=== PATIENT | female | born 1985 | race Caucasian/White ===

== ENCOUNTER 2019-08-10 12:29 | Emergency (ER) | payer BC, SELFPAY ==
--- NOTE | 2019-08-10 13:03 | ED.URI ---
HPI - URI/Sore Throat General Stated Complaint: cough congestion Time Seen by Provider: 08/10/19 13:18 Source: patient and RN notes reviewed Mode of arrival: ambulatory Limitations: no limitations History of Present Illness HPI Narrative: 34-year-old female presents with concern for 3-day history of fever, cough, nasal congestion, sinus pressure, sinus drainage, sore throat. Reports is been taking [id number] medications with little relief. MD elicited complaint: cough Related Data Home Medications Medication Instructions Recorded Confirmed No Home Medications 08/10/19 08/10/19 Allergies Allergy/AdvReac Type Severity Reaction Status Date / Time risperidone Allergy Severe DYSTONIC Verified 08/10/19 13:30 Review of Systems Review of Systems: Narrative: CONSTITUTIONAL: Reports malaise, chills, sweats, fever. EYES: Denies visual changes, redness, or discharge. ENT: Reports rhinorrhea, congestion, sinus pain,and sore throat. Denies otalgia CARDIOVASCULAR: Denies chest pain, palpitations, or edema. RESPIRATORY: Reports cough, chest congestion. Denies dyspnea. GASTROINTESTINAL: Denies abdominal pain, nausea, vomiting, diarrhea SKIN: Denies rash or itching. MUSCULOSKELETAL: Denies myalgia. NEUROLOGIC: Denies headache. All systems reviewed & are unremarkable except as noted in HPI and below PMFSH Comments At time of signature, agree with nursing past medical, surgical, social and family history. There is no relevant family history pertinent to the presenting complaint Exam Narrative: Exam Narrative: GENERAL: Well-appearing, well-nourished, and in no acute distress. HEAD: Normocephalic EYES: PERRLA, conjunctivae clear ENT: Nares clear, turbinates edematous and erythematous, clear discharge. Mucous membranes moist. TM pearly edouard with dull light reflex bilaterally; no tragal tenderness. Oropharynx not erythematous without lesions. Tonsils not enlarged and without exudate, no drooling, mild hoarseness, no trismus. NECK: Supple. No lymphadenopathy CHEST: Clear to auscultation, breath sounds equal. No wheezing, rhonchi, rales, or stridor. No respiratory distress, speaks in full sentences. Cough noted HEART: Regular rate and rhythm. No murmur heard. Normal peripheral pulses. SKIN: Warm, dry, no rash. NEURO: Alert and oriented x3. PSYCH: Normal mood and affect Course Course Emergency Course: Patient is aware of diagnosis, understands and agrees to treatment plan. Anticipatory guidance given. Patient agrees to follow-up as directed and is aware of reasons to seek care at the emergency department. Portions of this record may have been created with voice recognition software Vital Signs Vital signs: Reviewed. MDM - URI/Sore Throat MDM Narrative Medical decision making narrative: Differential diagnosis considered: Strep pharyngitis, allergic rhinitis, upper respiratory tract infection, sinusitis, rhinosinusitis, nasopharyngitis. viral pharyngitis, otitis media, otitis externa, pneumonia, bronchitis, viral cough syndrome, viral syndrome, and influenza. Exam findings show no acute concerns or changes; patient is non-toxic appearing and is in no distress. Patient is appropriate for outpatient treatment and follow-up. Lab Data Attestation: I reviewed the patient's lab results. Critical Care Time Critical Care Time Critical Care Time: No Discharge Plan Discharge Clinical Impression: Influenza-like illness Patient Disposition: Home, Self-Care Condition: Stable Instructions: Antibiotic Form, Influenza (ED) Additional Instructions: -Your symptoms are caused by a virus, and antibiotic does not cure viral illness. -Take strict precautions to prevent the spread of your virus. Be diligent about covering your cough (even when you are alone) and washing your hands frequently. -Alternate Tylenol and Motrin for pain and fever relief (per package directions) -Some Cough medicines may make you drowsy, do not take it if you have
[2019-08-10 13:08] VITALS: BP 125/78; PULSE 85; RESP 16; TEMP 37.4; O2SAT 98
== END 2019-08-10 13:35 | disposition home or self-care (01) ==
PROVIDERS: Emergency Provider Nurse Practitioner
DX: R05 Cough (principal); R50.9 Fever, unspecified; R09.81 Nasal congestion; J34.89 Other specified disorders of nose and nasal sinuses; J02.9 Acute pharyngitis, unspecified; L40.50 Arthropathic psoriasis, unspecified
CPT/HCPCS: 87804; 99213; G0463

== ENCOUNTER 2021-05-21 21:09 | Emergency (ER) | payer OTHER, SELFPAY ==
--- NOTE | ~2021-05-21 | CT_ITS ---
EXAMINATION: CTA chest PE protocol EXAM DATE: 05/21/2021 23:35 INDICATION: Chest pain and COVID. TECHNIQUE: Spiral CTA of the chest (pulmonary arteries) was performed with 100 cc Omnipaque 350 intr avenous contrast injection. Images were acquired during the pulmonary arterial phase. Coronal maxi mum intensity projection 3D-reconstructions were created by the technologist on dedicated workstation . Axial, coronal and sagittal reformatted images were reviewed. The dose-length product (DLP) for t his examination was 780.35 mGy-cm. The exposure was tailored according to patient size (auto mA exp osure control), and iterative reconstruction (ASIR) was used as additional dose reduction technique. Correlation is made to chest x-ray earlier same date. FINDINGS: Pulmonary arteries are well opacified and without intraluminal filling defects. No thora cic aortic dissection. Moderate amount of bilateral peripheral groundglass airspace disease, appeara nce and distribution is consistent with COVID pneumonia. There are no pleural or pericardial effusio ns. Tracheobronchial tree is patent. There is no mediastinal, hilar or axillary lymphadenopathy. There is no pneumothorax. Heart normal in size. No evidence of coronary arterial calcification. There is hepatic steatosis. There is thoracic spondylosis without osteoblastic or osteolytic lesio ns identified. IMPRESSION: 1. Moderate amount of bilateral COVID pneumonia. 2. No pulmonary emboli. Reviewed, dictated and finalized at location A. KNITTER
--- NOTE | ~2021-05-21 | XR_ITS ---
EXAMINATION: XR chest 1V portable EXAM DATE: 05/21/2021 22:31 INDICATION: Left-sided chest pain. TECHNIQUE: Portable AP frontal chest x-ray was obtained. Comparison is made to prior examination from 01/10/2019. FINDINGS: Suspect some ill-defined bilateral acute airspace disease, could be developing COVID pneumo vladimir given community prevalence in appearance. Please correlate this results with CT pulmonary scan wh ich has been ordered. Cardiomediastinal silhouette is normal. There is no pneumothorax suspected. The re are no pleural effusions. There are no osseous abnormalities identified. IMPRESSION: Suspect ill-defined bilateral airspace disease. Reviewed, dictated and finalized at location A. NING SPECIALIST
--- NOTE | 2021-05-21 21:11 | ECG_ITS ---
Measurements Intervals [place] Rate: 83 P: 58 OR: 158 QRS: 30 QRSD: 97 T: 6 QT: 370 QTc: 436 Interpretive Statements SINUS RHYTHM POSSIBLE LEFT ATRIAL ENLARGEMENT INCOMPLETE RIGHT BUNDLE BRANCH BLOCK BORDERLINE ST-T WAVE ABNORMALITY- ANTEROLAT/INF LEADS BASELINE WANDER- II, III, AVR, AVF, V2-V3, V6 BORDERLINE ECG Electronically Signed On 05-22-2021 6:49:00 PROFESSOR OF POLITICAL SCIENCE by Lazarus De La Fuente D.O.
[2021-05-21 21:16] VITALS: BP 121/74; PULSE 87; RESP 18; TEMP 36.3; O2SAT 97
[2021-05-21 21:39] LABS: Basophils Percent Auto 0.1 % (0.2-1.2); Hematocrit 41.1 % (37.0-47.0); Immature Granulocyte Absolute 0.02 K/mm3 (0.00-0.031); Immature Granulocyte Percent A 0.3 % (0-0.5); Lymphocytes Absolute Auto 1.47 K/mm3 (0.9-3.2); Mean Corpuscular HGB Conc 34.1 g/dl (32-36); Mean Corpuscular Hemoglobin 30.5 pg (26-34); Mean Corpuscular Volume 89.5 fl (80-100); Mean Platelet Volume 11.5 fl (7.4-10.4); Monocytes Absolute Auto 0.3 K/mm3 (0.1-0.6); Monocytes Percent Auto 3.5 % (2.6-8.5); Neutrophils Absolute Auto 5.6 K/mm3 (1.3-6.7); Neutrophils Percent Auto 76.1 % (45.5-73.1); Platelet Count Result 204 k/mm3 (150-375); Red Blood Count 4.59 M/mm3 (4.2-5.4); Red Cell Distribution Width 12.3 % (11.5-14.5); White Blood Count 7.4 K/mm3 (4.5-10.0)
[2021-05-21 21:43] LABS: Alanine Aminotransferase 34 U/L (4-35); Albumin Level 4.2 g/dL (3.5-5.1); Alkaline Phosphatase 70 U/L (38-126); Anion Gap 10 mmol/L (8-16); Aspartate Amino Transferase 36 U/L (14-36); Bilirubin,Total 0.4 mg/dL (0.2-1.3); Blood Urea Nitrogen 17 mg/dL (7-17); Calcium 9.4 mg/dL (8.4-10.2); Carbon Dioxide 22 mmol/L (22-30); Chloride 103 mmol/L (98-107); Estimated Glomerular Filt Rate > 60; Glucose 199 mg/dL (65-110); Lipase 101 U/L (23-300); Potassium 4.2 mmol/L (3.4-5.0); Sodium 135 mmol/L (137-145)
[2021-05-21 21:54] LABS: Troponin I < 0.012 ng/mL (0.000-0.034)
[2021-05-21] MEDS: ASPIRIN 81 MG CHEWABLE TABLET 324 MG PO (22:14)
--- NOTE | 2021-05-21 22:27 | ED.CHESTPAIN ---
HPI - Chest Pain General Chief Complaint: Chest Pain Stated Complaint: chest pain Time Seen by Provider: 05/21/21 22:04 Source: RN notes reviewed History of Present Illness HPI narrative: Patient presents emergency department from home for chest pain. Patient states chest pain began approximately 2 days ago pain is located in the midsternal chest and radiates through into the back described as sharp and stabbing. Patient states that she was diagnosed with COVID-19 on May 16 with symptoms starting May 14. She states she has had a cough this been nonproductive notes intermittent fever she denies any abdominal pain nausea vomiting diarrhea or any other symptoms states she did not receive the COVID-19 vaccination Related Data Allergies Allergy/AdvReac Type Severity Reaction Status Date / Time risperidone Allergy Severe DYSTONIC Verified 05/21/21 21:19 Review of Systems Review of Systems: Gen.: Denies fevers or chills reports COVID-19 ENT: Denies congestion Respiratory: Denies shortness of breath or cough CV: See HPI GI: Denies abdominal pain nausea, emesis or diarrhea Musculoskeletal: Denies back pain or muscle pain Neuro: Denies numbness, tingling, weakness or focal weakness Skin: Denies rash Except as documented, all other systems reviewed and negative PMFSH Past Medical History Medical History (Updated 05/22/21 @ 01:07 by Jeffery Boss DO) COVID-19 Social History Social History (Updated 05/21/21 @ 22:28 by Jeffery Boss DO) Smoking status: Never smoker Exam Narrative: APPEARANCE: No acute distress, nontoxic, resting in bed EYES: EOMI HEENT: Normocephalic, atraumatic, OMM RESPIRATORY: No respiratory distress Clear to auscultation bilaterally with no rhonchi wheezing or rales. CARDIOVASCULAR: Regular rate and rhythm without murmurs rubs or gallops. ABDOMINAL: Soft, nontender, nondistended, no rebound or guarding MUSCULOSKELETAl: Moves all extremities. No clubbing, cyanosis or edema. NEURO: Awake and alert. Following commands, speech normal, no focal deficits SKIN:: Warm, dry. No rashes lesions or abrasions PSYCHIATRIC: Normal affect/mood, Course Course Emergency Course: Currently on steroids as well as albuterol from her PCP Discussed with patient results of workup and diagnosis. Discussed need for follow-up with primary care, proper use of medication, and reasons to return to the emergency department. Patient understands and agrees to current treatment plan Vital Signs Vital signs: Vital Signs Temperature 97.3 F L 05/21/21 21:16 Pulse Rate 87 05/21/21 21:16 Respiratory Rate 18 05/21/21 21:16 Blood Pressure 121/74 05/21/21 21:16 Pulse Oximetry 97 05/21/21 21:16 Temperature 97.3 F L 05/21/21 21:16 Pulse Rate 72 05/21/21 22:29 Respiratory Rate 16 05/21/21 22:29 Blood Pressure 132/90 05/21/21 22:29 Pulse Oximetry 98 05/21/21 22:29 MDM - Chest Pain MDM Narrative Medical decision making narrative: Patient's EKGs and labs are without significant high risk changes. Cardiac risk factors reviewed. Patient is felt likely low risk for ACS and reasonable for further risk stratification testing as an outpatient. Pain has been ongoing for the past 3 days with 2 days of anxiety. Patient currently with COVID-19 Covid pneumonia seen throughout the lungs suspect a component of pleurisy with this pain no signs of pulmonary embolism or aneurysm on CTA chest. Patient's oxygen levels have remained stable on room air throughout stay in ED in the upper 90s.. Patient is felt to be a reasonable candidate for continued evaluation as an outpatient Lab Data Result diagrams: 05/21/21 21:23 05/21/21 21:23 Labs: Lab Results 05/21/21 05/21/21 05/21/21 Range/Units 21:23 21:23 22:20 WBC 7.4 (4.5-10.0) K/mm3 RBC 4.59 (4.2-5.4) M/mm3 Hgb 14.0 (12.0-15.0) g/dL Hct 41.1 (37.0-47.0) % MCV 89.5 (80-100) fl MCH 30.5 (26-34) pg
[2021-05-21 22:29] VITALS: BP 132/90; PULSE 72; RESP 16; O2SAT 98
[2021-05-21 22:34] LABS: INR 0.8; Partial Thromboplastin Time 26.2 SECONDS (22.3-36.8); Prothrombin Time 11.5 Seconds (11.1-14.7)
[2021-05-22] MEDS: ALBUTEROL SULFATE (*SP) AEROSOL 1 PUFF 2 PUFF INHALATION (00:32)
[2021-05-22 01:01] LABS: Troponin I < 0.012 ng/mL (0.000-0.034)
[2021-05-22 01:52] VITALS: PULSE 80; RESP 16; O2SAT 100
== END 2021-05-22 01:53 | disposition home or self-care (01) ==
PROVIDERS: Emergency Medicine; Emergency Provider Emergency Medicine; PCP Emergency Medicine
DX: U07.1 COVID-19 (principal); R09.1 Pleurisy
CPT/HCPCS: 36415; 71045; 71275; 80053; 81025; 83690; 84484; 85025; 85610; 85730; 93005; 94640; 96365; 99284; A9270; J0131; Q9967

== ENCOUNTER → 2021-06-20 12:36 | Outpatient (CLI) | payer SELFPAY ==
--- NOTE | ~2021-06-20 | XR_ITS ---
EXAMINATION: XR chest 2V DATE: 06/20/2021 13:02 INDICATION: Pneumonia TECHNIQUE: PA and lateral views of the chest were obtained. COMPARISON: Chest radiograph dated 05/21/2021 FINDINGS: Lungs are now clear with interval resolution of the prior subtle airspace opacities. No pulmonary jean ma, pleural effusion or pneumothorax. The cardiomediastinal silhouette is normal. Surgical clips justo g the anterior abdominal wall likely related to prior ventral hernia repair. IMPRESSION: 1. No acute cardiopulmonary disease. Reviewed, dictated and finalized at location B. L SPRAY OPERATOR
== END ==
PROVIDERS: PCP Emergency Medicine; Visit Provider Emergency Medicine
DX: J18.9 Pneumonia, unspecified organism (principal)
CPT/HCPCS: 71046

== ENCOUNTER 2021-07-18 01:35 | Day surgery (SDC) | payer SELFPAY ==
[2021-07-08 15:20] VITALS: BMI 27.9
--- NOTE | 2021-07-17 16:50 | P.PNAN_ITS ---
Anes - Eval Pre Procedure Procedure: Operation Date: 07/18/21 11:30 Proposed Procedures p Colonoscopy - Aston Flores MD Date/Time: 07/17/21 16:50 Pre Op Diagnosis: Diarrhea, Rectal Bleed Patient Data Age: 36 Gender: F Height: 1.8 m Weight: 91 kg Allergies Allergy/AdvReac Type Severity Reaction Status Date / Time risperidone Allergy Severe DYSTONIC Verified 05/21/21 21:19 Home Medications Medication Instructions Recorded Confirmed Type albuterol sulfate 2 puff INHALATION PRN PRN 07/08/21 07/08/21 History Patient hx anesthesia problems: none Family hx anesthesia problems: none Results Review: All pre-operative results and documents have been reviewed as part of the pre-operative evaluation. [facility] Past Medical History Medical History (Updated 07/17/21 @ 16:54 by Ray Peck CRNA) Asthma Back pain Bronchitis Chronic eczema COVID-19 Hemorrhoids History of smoking Hx of gastrointestinal hemorrhage Overweight (BMI 25.0-29.9) Pneumonia Psoriasis Shingles Social History Social History Smoking packs per day: 0.5 Smoking cigarettes per day: 10.0 Years smoked: 2 Smoking pack-years: 1.00 Smoking status: Former smoker Tobacco type: cigarettes Alcohol intake: never Substance use: never Substance use type: does not use Spiritual care concerns: No Exam Day of Procedure 07/17/21 16:50 Patient weight: overweight
[2021-07-18 10:23] VITALS: BP 142/99; PULSE 109; RESP 18; TEMP 36.3; O2SAT 100; BMI 29.0
[2021-07-18] MEDS: LACTATED RINGERS 1,000 ML 150 ML IV CONT (10:47)
--- NOTE | 2021-07-18 10:52 | WPDANESEFPP ---
Anes - Eval Final PreProcedure Day of Procedure 07/18/21 10:52 Patient weight: morbidly obese Heart: regular rate and rhythm Lungs: clear to auscultation Airway: Mallampati scale class II Neurological: alert and oriented Last oral intake: >/= 8 hours ASA classification: III Emergent: no Anesthetic plan: proceed Anesthesia type and monitoring: general GIVS and standard monitoring Results Review: All pre-operative results and documents have been reviewed as part of the pre-operative evaluation. Informed Consent: The patient's anesthetic plan and its attendant risks and benefits were discussed with the patient/family/POA. Questions were solicited and answers provided to the satisfaction of the patient/family/POA.
--- NOTE | 2021-07-18 11:21 | PM.HPGS ---
History of Present Illness History of Present Illness Consent: Risks, benefits, and alternatives have been discussed and questions answered. Patient agrees to proceed with procedure. Chief complaint: Diarrhea, Rectal Bleed Narrative: Ambika Gaytan is a 36 year old female with 2-3 loose stools over a year normally triggered after eating pasta, bread and milk, never had colonoscopy Review of Systems Constitutional: Constitutional: Denies headache(s) and Denies weakness Eyes: Eyes: Denies blurry vision ENT: Reports Normal hearing present, Denies headache(s) and Denies neck pain Cardiovascular: Cardiovascular: Denies chest pain and Denies dyspnea Respiratory: Respiratory: Denies dyspnea Gastrointestinal: Gastrointestinal: Reports no additional gastrointestinal complaints Genitourinary: Genitourinary: Denies dysuria Musculoskeletal: Musculoskeletal: Denies neck pain Integumentary/Breasts: Skin/Breast: Denies dry skin Neurologic: Reports Normal hearing present, Denies headache(s) and Denies weakness Psychiatric: Psychiatric: Denies anxiety Endocrine: Endocrine: Denies change in body appearance Hematologic/Lymphatic: Hematologic/Lymphatic: Denies easy bleeding Allergic/Immunologic: Allergic/Immunologic: Denies urticaria PMFSH Past Medical History Medical History (Updated 07/18/21 @ 11:21 by Aston Flores MD) Asthma Back pain Bronchitis Chronic eczema COVID-19 Diarrhea Hemorrhoids History of smoking Hx of gastrointestinal hemorrhage Overweight (BMI 25.0-29.9) Pneumonia Psoriasis Shingles Social History Social History Smoking packs per day: 0.5 Smoking cigarettes per day: 10.0 Years smoked: 2 Smoking pack-years: 1.00 Smoking status: Never smoker Tobacco type: cigarettes Alcohol intake: never Substance use: never Substance use type: does not use Living arrangements: with family Spiritual care concerns: No Meds Home Medications and Allergies Home Medications Medication Instructions Recorded Confirmed Type albuterol sulfate 2 puff INHALATION PRN PRN 07/08/21 07/18/21 History Allergies Allergy/AdvReac Type Severity Reaction Status Date / Time risperidone Allergy Severe DYSTONIC Verified 07/18/21 10:35 Vital Signs Vital Signs - 24 hr 07/18/21 10:23 Temperature 97.3 F L Pulse Rate 109 H Respiratory Rate 18 Blood Pressure 142/99 H Pulse Oximetry 100 Exam Const: General: comfortable and no acute distress HENMT: General nose exam: Normal nares present Eyes: General: appearance normal, both eyes and all related structures Neck: Neck: no JVD Resp: Auscultation: clear to auscultation bilaterally Cardio: Rate: regular rate Rhythm: regular rhythm GI: Inspection: non-distended GI Palp: Yes Soft to palpation Skin: General skin exam: normal color Neuro: General: gait normal Speech: normal speech Extrem: General: normal to inspection Psych: Mental Status: mental status grossly normal Assessment and Plan Assessment and plan (1) Diarrhea: Code(s): R19.7 - Diarrhea, unspecified Status: Acute Assessment and Plan: colonoscopy with random bx ? microscopic colitis, also may need to check serology for celiac disease
[2021-07-18 11:37] VITALS: BP 107/72; PULSE 82; RESP 18; O2SAT 98
[2021-07-18 11:47] VITALS: BP 124/91; PULSE 81; RESP 17; O2SAT 97
[2021-07-18 11:57] VITALS: BP 122/101; PULSE 78; RESP 16; O2SAT 97
== END 2021-07-18 12:00 | disposition home or self-care (01) ==
PROVIDERS: PCP Emergency Medicine; Visit Provider Internal Medicine Gastroenterology
PROC: 0DJD8ZZ Inspection of Lower Intestinal Tract, Via Natural or Artificial Opening Endoscopic (ICD-10-PCS; CPT 45378; principal; 2021-07-18 11:30)
DX: K52.9 Noninfective gastroenteritis and colitis, unspecified (principal); K57.30 Diverticulosis of large intestine without perforation or abscess without bleeding; K64.8 Other hemorrhoids; J45.909 Unspecified asthma, uncomplicated; Z86.16 Personal history of COVID-19; Z87.891 Personal history of nicotine dependence
CPT/HCPCS: 45380; 88305; J2704; J7120

== ENCOUNTER 2021-07-23 13:43 | Outpatient (CLI) | payer SELFPAY ==
[2021-07-25 20:09] LABS: Tissue Transglutaminase IgG Ab <1.0 U/mL (<15.0)
[2021-07-26 20:53] LABS: Tissue Transglutaminase IgA Ab <1.0 U/mL (<15.0)
== END 2021-07-23 13:44 | disposition home or self-care (01) ==
PROVIDERS: PCP Emergency Medicine; Visit Provider Internal Medicine Gastroenterology
DX: R19.7 Diarrhea, unspecified (principal)
CPT/HCPCS: 36415; 83516

== ENCOUNTER 2022-06-11 16:55 | Emergency (ER) | payer OTHER, SELFPAY ==
--- NOTE | ~2022-06-11 | XR_ITS ---
EXAMINATION: XR lumbar spine 2-3V DATE: 06/11/2022 20:18 INDICATION: Low back pain. TECHNIQUE: 3 views of lumbar spine were obtained. COMPARISON: None. FINDINGS: Bone alignment is normal. Vertebral body heights and intervertebral disc heights are normal . The facet joints are unremarkable. Surgical clips overlie the abdomen and pelvis. IMPRESSION: 1. Normal lumbar spine. Reviewed, dictated and finalized at location A. MAKER IMPRESSION: 1. Normal lumbar spine.
--- NOTE | ~2022-06-11 | XR_ITS ---
EXAMINATION: XR hip LT min 3V w AP pelvis DATE: 06/11/2022 20:18 INDICATION: Left hip pain. TECHNIQUE: An anteroposterior view of the pelvis and 3 views of left hip were obtained. COMPARISON: None. FINDINGS: Bone alignment is normal. No fracture. Joint spaces are normal. Surgical clips overlie the abdomen and pelvis. IMPRESSION: 1. No etiology for the patient's symptoms. Reviewed, dictated and finalized at location A. CAB STARTER
[2022-06-11 17:09] VITALS: BP 135/89; PULSE 84; RESP 15; O2SAT 98
--- NOTE | 2022-06-11 19:57 | ED.EXTPRO ---
HPI - Extremity Problem General Chief complaint: Extremity Problem,Nontraumatic Stated complaint: L HIP PAIN X3D Time Seen by Provider: 06/11/22 19:40 History of Present Illness HPI Narrative: 37-year-old obese female presents to the emergency room for evaluation of left hip pain that began the day following snowboarding. Patient states she is also experiencing some low back pain that radiates into her anterior left thigh. Pain is worse with ambulation and when extending her leg. Has been taking ibuprofen with mild relief of pain. Pain is alleviated with flexion. Saddle anesthesia. No known injury or trauma. States that she has had a history of similar symptoms several years ago that resolved spontaneously. No changes or difficulty with her bowel or bladder habits. Related Data Home Medications Medication Instructions Recorded Confirmed albuterol sulfate 90 mcg/actuation 2 puff inhalation PRN PRN 07/08/21 07/18/21 aerosol inhaler Shortness Of Breath Allergies Allergy/AdvReac Type Severity Reaction Status Date / Time risperidone Allergy Severe DYSTONIC Verified 06/11/22 19:45 Review of Systems Review of Systems: CONSTITUTIONAL: Denies fever, chills, or sweats. EYES: Denies visual changes, redness, or discharge. ENT: Denies rhinorrhea, congestion, sore throat, or otalgia. CARDIOVASCULAR: Denies chest pain, palpitations, or edema. RESPIRATORY: Denies cough or dyspnea. GASTROINTESTINAL: Denies abdominal pain, nausea, vomiting, or diarrhea. GENITOURINARY: Denies dysuria or hematuria. SKIN: Denies rash or itching. MUSCULOSKELETAL: Denies back pain, joint pain, or myalgia. NEUROLOGIC: Denies headache, numbness, dizziness, or weakness. PSYCHIATRIC: Denies anxiety or depression. [facility] Past Medical History Medical History Asthma Back pain Bronchitis Chronic eczema COVID-19 Diarrhea Hemorrhoids History of smoking Hx of gastrointestinal hemorrhage Overweight (BMI 25.0-29.9) Pneumonia Psoriasis Shingles Social History Social History Smoking packs per day: 0.5 Smoking cigarettes per day: 10.0 Years smoked: 2 Smoking pack-years: 1.00 Smoking status: Never smoker Tobacco type: cigarettes Alcohol intake: never Substance use: never Substance use type: does not use Spiritual care concerns: No Exam Narrative: GENERAL: Well-appearing, well-nourished, no physical limitations, and in no acute distress. HEAD: Normocephalic, atraumatic. EYES: Conjunctivae normal, PERRLA and EOMI. CHEST: Clear to auscultation. No respiratory distress. No wheezes rales or rhonchi. HEART: Regular rate and rhythm. No murmur heard. Normal peripheral pulses. BACK: No midline cervical/thoracic/lumbar tenderness, step-offs, bony abnormality; FROM EXTREMITIES: LLE: Tenderness or abnormality. Full range of motion of the left hip joint. Patients injury or pain is consistent with musculoskeletal etiology. No signs of neurological or vascular compromise on exam. Compartments and tisues are soft without signs of compartment syndrome. Pain is felt appropriate for further evaluation on an outpatient basis. No pain with IR or ER. Pain is exacerbated with leg in full extension and alleviated in flexion. Neurovascular is intact distally SKIN: Warm, dry, no rash. No noted wounds NEURO: No focal deficits. Alert and oriented x3. MAEW. CN's II-XI intact bilaterally, normal gait PSYCH: Cooperative. Normal mood and affect. Course Vital Signs Vital signs: Vital Signs Pulse Rate 84 06/11/22 17:09 Respiratory Rate 15 06/11/22 17:09 Blood Pressure 135/89 06/11/22 17:09 Pulse Oximetry 98 06/11/22 17:09 Oxygen Delivery Room Air 06/11/22 17:09 Pulse Rate 84 06/11/22 17:09 Respiratory Rate 15 06/11/22 17:09 Blood Pressure 135/89 06/11/22 17:09 Pulse Oximetry 98 06/11/22 17:09 Oxygen Delivery Room
[2022-06-11] MEDS: diazePAM (*CRX) 5 MG TABLET PO (20:20)
== END 2022-06-11 21:15 | disposition home or self-care (01) ==
PROVIDERS: Emergency Provider Nurse Practitioner Family; PCP Emergency Medicine
DX: M54.16 Radiculopathy, lumbar region (principal); J45.909 Unspecified asthma, uncomplicated; E66.3 Overweight; Z68.41 Body mass index [BMI] 40.0-44.9, adult; F17.210 Nicotine dependence, cigarettes, uncomplicated; Z86.16 Personal history of COVID-19; Z87.01 Personal history of pneumonia (recurrent)
CPT/HCPCS: 72100; 73502; 99284; A9270

== ENCOUNTER 2022-07-02 15:52 | Outpatient (CLI) | payer OTHER, SELFPAY ==
--- NOTE | ~2022-07-02 | MR_ITS ---
EXAMINATION: MR lumbar spine wo con DATE: 07/02/2022 16:30 INDICATION: Lumbago. Left-sided sciatica. TECHNIQUE: Magnetic resonance imaging (MRI) of the lumbar spine was performed without intravenous con trast. Sequences included sagittal T2-weighted FSE, sagittal T2-weighted FS FSE, sagittal T1-weighted FSE, and axial T2-weighted FSE. COMPARISON: Lumbar spine radiographs 06/11/2022 FINDINGS: Bone alignment is normal. Vertebral body heights are normal. There is mildly decreased disc height at L5-S1. The distal spinal cord signal intensity is normal. The conus medullaris is at L1. T he following disc levels are specifically discussed: L1-L2: The disc does not extend beyond the endplate margin. There is mild left facet joint osteoarthr itis. There is no neural foraminal stenosis. There is no central canal stenosis. L2-L3: The disc does not extend beyond the endplate margin. There is mild bilateral facet joint osteo arthritis. There is no neural foraminal stenosis. There is no central canal stenosis. L3-L4: The disc does not extend beyond the endplate margin. There is mild right and moderate left fac et joint osteoarthritis. There is no neural foraminal stenosis. There is no central canal stenosis. L4-L5: The disc is bulging. There is mild right and moderate left facet joint osteoarthritis. There i s mild right and moderate left neural foraminal stenosis. There is mild central canal stenosis. L5-S1: The disc is bulging and has an annular fissure. There is mild bilateral facet joint osteoarthr itis. There is mild bilateral neural foraminal stenosis. There is mild central canal stenosis. IMPRESSION: 1. Moderate left neural foraminal stenosis at L4-L5. Otherwise mild lumbar spondylosis. Reviewed, dictated and finalized at location A. ND OPERATOR IMPRESSION: 1. Moderate left neural foraminal stenosis at L4-L5. Otherwise mild lumbar spon dylosis.
== END 2022-07-02 15:53 | disposition home or self-care (01) ==
PROVIDERS: PCP Emergency Medicine; Visit Provider Emergency Medicine
DX: M54.42 Lumbago with sciatica, left side (principal); M47.896 Other spondylosis, lumbar region
CPT/HCPCS: 72148

== ENCOUNTER 2022-11-05 18:17 | Emergency (ER) | payer OTHER, SELFPAY ==
[2022-11-05] VITALS (7 sets, daily range): BP systolic 139–158; BP diastolic 97–110; PULSE 78–91; RESP 16–23; TEMP 36.8; O2SAT 98–99
--- NOTE | ~2022-11-05 | XR_ITS ---
EXAMINATION: XR chest 2V DATE: 11/05/2022 19:18 INDICATION: Chest pain. TECHNIQUE: Frontal and lateral views of the chest were obtained. COMPARISON: Chest 2 views 06/20/21, chest CT 05/21/2021 FINDINGS: The chest demonstrates clear lungs without pneumonia, pleural effusion, or pneumothorax. Th e heart size is normal. There are surgical clips from ventral hernia repair. IMPRESSION: 1. No acute cardiopulmonary disease. Reviewed, dictated and finalized at location E.
--- NOTE | 2022-11-05 18:18 | ECG_ITS ---
Measurements Intervals [place] Rate: 68 P: 53 [place]: 164 QRS: 30 QRSD: 97 T: 12 QT: 373 QTc: 399 Interpretive Statements SINUS RHYTHM WITH SINUS ARRHYTHMIA POSSIBLE LEFT ATRIAL ENLARGEMENT BORDERLINE ECG NO PREVIOUS ECG AVAILABLE FOR COMPARISON Electronically Signed On 11-05-2022 18:41:14 CDT by Lazarus De La Fuente D.O.
[2022-11-05] MEDS: ASPIRIN 81 MG CHEWABLE TABLET 324 MG PO (19:01)
[2022-11-05 19:08] LABS: Basophils Absolute Auto 0.1 K/mm3 (0.0-0.1); Basophils Percent Auto 0.8 % (0.2-1.2); Eosinophils Absolute Auto 0.2 K/mm3 (0-0.3); Eosinophils Percent Auto 2.2 % (0-4.4); Hematocrit 44.4 % (37.0-47.0); Hemoglobin 15.2 g/dL (12.0-15.0); Immature Granulocyte Absolute 0.02 K/mm3 (0.00-0.031); Immature Granulocyte Percent A 0.2 % (0-0.5); Lymphocytes Absolute Auto 3.45 K/mm3 (0.9-3.2); Lymphocytes Percent Auto 40.7 % (18.3-44.2); Mean Corpuscular HGB Conc 34.2 g/dl (32-36); Mean Corpuscular Volume 87.6 fl (80-100); Mean Platelet Volume 10.9 fl (7.4-10.4); Monocytes Absolute Auto 0.6 K/mm3 (0.1-0.6); Monocytes Percent Auto 6.8 % (2.6-8.5); Neutrophils Absolute Auto 4.2 K/mm3 (1.3-6.7); Neutrophils Percent Auto 49.3 % (45.5-73.1); Platelet Count Result 293 k/mm3 (150-375); Red Blood Count 5.07 M/mm3 (4.2-5.4); Red Cell Distribution Width 12.2 % (11.5-14.5); White Blood Count 8.5 K/mm3 (4.5-10.0)
[2022-11-05 19:18] LABS: Alanine Aminotransferase 65 U/L (6-35); Alkaline Phosphatase 62 U/L (38-126); Anion Gap 12 mmol/L (8-16); Aspartate Amino Transferase 43 U/L (14-36); Bilirubin,Total 0.5 mg/dL (0.2-1.3); Blood Urea Nitrogen 17 mg/dL (7-17); Calcium 11.1 mg/dL (8.4-10.2); Carbon Dioxide 26 mmol/L (22-30); Chloride 100 mmol/L (98-107); Estimated Glomerular Filt Rate > 60; Glucose 100 mg/dL (65-110); Lipase 108 U/L (23-300); Potassium 3.7 mmol/L (3.4-5.0); Sodium 138 mmol/L (137-145)
[2022-11-05 19:23] LABS: Prothrombin Time 13.1 Seconds (11.1-14.7)
[2022-11-05 19:24] LABS: Partial Thromboplastin Time 30.4 SECONDS (22.3-36.8)
[2022-11-05 19:29] LABS: Troponin I < 0.012 ng/mL (0.000-0.034)
[2022-11-05 19:35] LABS: D Dimer 0.45 ug/mL (<0.48)
--- NOTE | 2022-11-05 20:01 | ED.CHESTPAIN ---
HPI - Chest Pain General Chief Complaint: Chest Pain Stated Complaint: chest pain Time Seen by Provider: 11/05/22 18:52 Source: patient Mode of arrival: ambulatory Limitations: no limitations History of Present Illness HPI narrative: 37-year-old otherwise healthy here with complaints of intermittent chest pain radiating into her neck into her arm for last several weeks. She is has no previous history of CAD. She is presently under a lot of stress with her mother and child. No history of cough or shortness of breath or fever or chills. MD complaint: chest pain Onset (ago): week(s) Timing of current episode: episodic Pain location: substernal Pain radiation: neck Severity: moderate Quality: heaviness Relieving factors: nothing Exacerbating factors: nothing Related Data Home Medications Medication Instructions Recorded Confirmed albuterol sulfate 90 mcg/actuation 2 puff inhalation PRN PRN 07/08/21 07/16/22 aerosol inhaler Shortness Of Breath Allergies Allergy/AdvReac Type Severity Reaction Status Date / Time risperidone Allergy Severe DYSTONIC Verified 11/05/22 19:00 Review of Systems Review of Systems: All systems reviewed & are unremarkable except as noted in HPI and below Constitutional: Constitutional: Reports no additional constitutional complaints Eyes: Eyes: Reports no additional eye complaints ENT: Reports system reviewed and no additional complaints, except as documented Cardiovascular: Cardiovascular: Reports as per HPI Respiratory: Respiratory: Reports no additional respiratory complaints Gastrointestinal: Gastrointestinal: Reports no additional gastrointestinal complaints Musculoskeletal: Musculoskeletal: Reports no additional musculoskeletal complaints Integumentary/Breasts: Skin/Breast: Reports system reviewed and no additional complaints, except as docu Neurologic: Reports system reviewed and no additional complaints, except as documented [facility] Past Medical History Medical History Asthma Back pain Bronchitis Chronic eczema COVID-19 Diarrhea Hemorrhoids History of smoking Hx of gastrointestinal hemorrhage Lumbar spondylosis Overweight (BMI 25.0-29.9) Pneumonia Psoriasis Shingles Social History Social History Smoking packs per day: 0.5 Smoking cigarettes per day: 10.0 Years smoked: 2 Smoking pack-years: 1.00 Smoking status: Never smoker Tobacco type: cigarettes Alcohol intake: never Substance use: never Substance use type: does not use Living arrangements: with family Spiritual care concerns: No Exam Narrative: GENERAL: Well-appearing, well-nourished, and in no acute distress. HEAD: Normocephalic, atraumatic. EYES: PERRLA and EOMI. NECK: Supple. CHEST: Clear to auscultation. No respiratory distress. HEART: Regular rate and rhythm. No murmur heard. Normal peripheral pulses. ABDOMEN: Soft, nontender, nondistended, normal active bowel sounds. EXTREMITIES: Normal range of motion. No edema. SKIN: Warm, dry, no rash. NEURO: No focal deficits. Alert and oriented x3. PSYCH: Normal mood and affect. Course Course Emergency Course: Patient upon arrival to the ER has no pain her EKG showed normal sinus with no acute ST-T changes her cardiac work-up including D-dimer was negative her chest x-ray was normal I did discuss at length about her lab work and chest x-ray findings. Cause of her pain at this time is it appears to be atypical chest pain recommended her to follow-up with her primary doctor. Vital Signs Vital signs: Vital Signs Temperature 36.8 C 11/05/22 18:25 Pulse Rate 84 11/05/22 18:25 Respiratory Rate 18 11/05/22 18:25 Blood Pressure 146/100 H 11/05/22 18:25 Pulse Oximetry 99 11/05/22 18:25 Oxygen Delivery Room Air 11/05/22 18:25 Temperature 36.8 C 11/05/22 18:25 Pulse Rate 91 11/05/22 19:03 Res
== END 2022-11-05 20:23 | disposition home or self-care (01) ==
PROVIDERS: Emergency Provider Family Medicine; PCP Emergency Medicine
DX: R07.89 Other chest pain (principal); J45.909 Unspecified asthma, uncomplicated; Z87.01 Personal history of pneumonia (recurrent); F17.210 Nicotine dependence, cigarettes, uncomplicated; E66.3 Overweight; Z68.41 Body mass index [BMI] 40.0-44.9, adult; Z86.16 Personal history of COVID-19; R94.31 Abnormal electrocardiogram [ECG] [EKG]
CPT/HCPCS: 36415; 71046; 80053; 83690; 84484; 85025; 85380; 85610; 85730; 93005; 99284; A9270

== ENCOUNTER 2022-12-25 09:06 | Outpatient (CLI) | payer OTHER, SELFPAY ==
--- NOTE | 2022-12-25 09:23 | EST_ITS ---
Patient Info Name: Ambika Ahn Age: 37 years : 1985 Gender: Female Ht: 49 in Wt: 202 lbs BSA: 1.86 m2 HR: 49 bpm BP: 126 / 82 mmHg Heart Rhythm: Sinus Rhythm Exam Date: 12/25/2022 9:44 AM Exam Location: [facility] Patient Status: Outpatient Admit Date: 12/25/2022 Staff Ordering Physician: Lazarus De La Fuente DO Attending Provider: Lazarus De La Fuente DO Exercise Technologist: Yamilet Riggins CT Nurse: ramy fong Exercise Physician: Lazarus De La Fuente DO Exam Type: CA stress test treadmill Study Info Indications R07.9 - Chest pain, unspecified A treadmill exercise stress test was performed. Summary 1. 1. Negative [facility] exercise stress test for ischemic ST changes by ECG criteria. 2. 2. Good functional capacity, achieving 10 METs of workload. 3. 3. Appropriate HR response to exercise. 4. 4. Appropriate HR recovery at 1 minute post exercise. 5. 5. No imaging with stress testing. 6. 6. Patient informed of the above results. Protocol: [facility] ECG Details Stage: REST Duration (min): 1 min : 19 sec Speed (mph): 0.0 Grade (%): 0 HR (bpm): 76 SBP (mmHg): 126 DBP (mmHg): 82 METS: --- Stage: REST Duration (min): 6 min : 34 sec Speed (mph): 0.0 Grade (%): 0 HR (bpm): 83 SBP (mmHg): 126 DBP (mmHg): 82 METS: --- Stage: STAGE 1 Duration (min): 1 min : 0 sec Speed (mph): 1.7 Grade (%): 10 HR (bpm): 105 SBP (mmHg): 126 DBP (mmHg): 82 METS: --- Stage: STAGE 1 Duration (min): 2 min : 0 sec Speed (mph): 1.7 Grade (%): 10 HR (bpm): 118 SBP (mmHg): 126 DBP (mmHg): 82 METS: --- Stage: STAGE 1 Duration (min): 3 min : 0 sec Speed (mph): 1.7 Grade (%): 10 HR (bpm): 123 SBP (mmHg): 137 DBP (mmHg): 71 METS: --- Stage: STAGE 2 Duration (min): 1 min : 0 sec Speed (mph): 2.5 Grade (%): 12 HR (bpm): 131 SBP (mmHg): 137 DBP (mmHg): 71 METS: --- Stage: STAGE 2 Duration (min): 2 min : 0 sec Speed (mph): 2.5 Grade (%): 12 HR (bpm): 134 SBP (mmHg): 145 DBP (mmHg): 73 METS: --- Stage: STAGE 2 Duration (min): 3 min : 0 sec Speed (mph): 2.5 Grade (%): 12 HR (bpm): 139 SBP (mmHg): 145 DBP (mmHg): 73 METS: --- Stage: STAGE 3 Duration (min): 1 min : 0 sec Speed (mph): 3.4 Grade (%): 14 HR (bpm): 146 SBP (mmHg): 147 DBP (mmHg): 84 METS: --- Stage: STAGE 3 Duration (min): 2 min : 0 sec Speed (mph): 3.4 Grade (%): 14 HR (bpm): 150 SBP (mmHg): 147 DBP (mmHg): 84 METS: --- Stage: STAGE 3 Duration (min): 3 min : 0 sec Speed (mph): 3.4 Grade (%): 14 HR (bpm): 155 SBP (mmHg): 133 DBP (mmHg): 85 METS: --- Stage: RECOVERY Duration (min): 0 min : 59 sec Speed (mph): 0.0 Grade (%): 0 HR (bpm): 127 SBP (mmHg): 133 DBP (mmHg): 85 METS: --- Stage: RECOVERY Duration (min): 1 min : 59 sec Speed (mph): 0.0 Grade (%): 0 HR (bpm): 112 SBP (mmHg):
== END 2022-12-25 09:07 | disposition home or self-care (01) ==
LOC: ANHCARD 09:08
PROVIDERS: PCP Emergency Medicine; Visit Provider Internal Medicine Cardiovascular Disease
DX: R07.9 Chest pain, unspecified (principal)
CPT/HCPCS: 93017